=== PATIENT | male | born 1995 | race Caucasian/White ===

== ENCOUNTER 2017-10-17 21:13 | Emergency (ER) | payer MEDICAID ==
[~2017-10-17] VITALS: Ht 188 cm; Wt 95.3 kg
[2017-10-17 21:31] VITALS: BP_SYST 164
--- NOTE | 2017-10-17 22:30 | NUR ---
Patient to ER bed 7 to gown for evaluation. Side rails up. Report given to [facility] MAI.
--- NOTE | 2017-10-17 22:35 | NUR ---
Patient brought in with mother complaining of shortness of breath for 1 day with cough. Patient has history of asthma. Patient has inhaler but has not used it. Denies any pain. Lungs have wheezing bilaterally. Patient able to speak full sentences. No other complaints/injuries per patient or as noted. Will continue to monitor
--- NOTE | 2017-10-17 22:42 | NUR ---
ER at bedside examining patient.
[2017-10-17] MEDS ORDERED: IPRATROPIUM/ALBUTEROL SULFATE 3 ML AMPUL.NEB INH ONE (22:45)
[2017-10-17 23:55] VITALS: BP_SYST 134
--- NOTE | 2017-10-17 23:55 | NUR ---
Patient given written and verbal discharge instructions and verbalizes understanding. ER MD discussed with patient the results and treatment provided. Patient in stable condition. ID arm band removed. Rx of Ventolin given. Patient educated on pain management and to follow up with PMD in 2-3 days. Pain Scale 0/10 Opportunity for questions provided and answered. Medication side effect fact sheet provided.
== END 2017-10-17 23:55 | disposition home or self-care (01) ==
LOC: EDSEX 21:13 → SED 21:13
DX: J45.909 Unspecified asthma, uncomplicated (principal)
CPT/HCPCS: 71045; 94640; 99283

== ENCOUNTER 2018-03-04 07:07 | Emergency (ER) | payer MEDICAID ==
[~2018-03-04] VITALS: Ht 188 cm; Wt 97.5 kg
[2018-03-04 07:11] VITALS: BP_SYST 135
[2018-03-04 08:21] VITALS: BP_SYST 123
== END 2018-03-04 08:22 | disposition home or self-care (01) ==
LOC: SED 07:07
DX: J02.8 Acute pharyngitis due to other specified organisms (principal); B96.89 Other specified bacterial agents as the cause of diseases classified elsewhere; J45.909 Unspecified asthma, uncomplicated; R03.0 Elevated blood-pressure reading, without diagnosis of hypertension
CPT/HCPCS: 36415; 86403; 87081; 99284